=== PATIENT | male | born 1945 | race Caucasian/White ===

== ENCOUNTER 2018-09-10 14:52 | Outpatient (CLI) | payer MEDICARE ==
--- NOTE | 2018-09-10 15:16 | RAD ---
EXAM: 2 views of the right tibia/fibula HISTORY: Leg pain after hurting while bowling COMPARISON: None FINDINGS: There is no evidence of acute fracture or dislocation. Mild diffuse soft tissue swelling is seen. No degenerative changes are seen in the knee or ankle. IMPRESSION: No evidence of acute osseous abnormality.
== END 2018-09-10 14:53 | disposition home or self-care (01) ==
LOC: BICRAD 14:52
PROVIDERS: ATTEND Family Medicine
DX: M79.604 Pain in right leg (principal); G89.29 Other chronic pain
CPT/HCPCS: 36415; 83036

== ENCOUNTER 2020-02-20 08:33 | Outpatient (CLI) | payer MEDICARE ==
--- NOTE | 2020-02-20 08:48 | RAD ---
EXAM: Two views chest PROVIDED CLINICAL HISTORY: Cough and chest pressure for 2 months. COMPARISON: None FINDINGS: Cardiac silhouette and pulmonary vasculature are within normal limits. Mild linear densities are see n in the right upper lung zone which may be related to areas of mild scarring or atelectasis. No consolidation or pleural fluid is identified. There is calcification of the anterior longitudinal lig ament. Mild degenerative changes are seen in the spine. IMPRESSION: No acute cardiopulmonary process.
== END 2020-02-20 08:34 | disposition home or self-care (01) ==
LOC: BICRAD 08:33
PROVIDERS: ATTEND Family Medicine
DX: R05 Cough (principal)
CPT/HCPCS: 71046

== ENCOUNTER 2023-10-09 10:20 | Inpatient (IN) | payer MEDICARE, OTHER ==
[2023-10-09] MEDS ORDERED: Morphine 4 MG/ML VIAL ONE (10:52)
[2023-10-09] MEDS ORDERED: Cefepime 2 GM VIAL ONE (10:52)
[2023-10-09] MEDS ORDERED: Ondansetron PF 4 MG/2 ML Vial ONE (10:52)
[2023-10-09] MEDS ORDERED: Sodium Chloride 0.9% 0 ML ONE (10:53)
[2023-10-09 11:10] LABS: Hematocrit 35.4 % (42.0-52.0); Hemoglobin 11.7 g/dL (14.0-18.0); Mean Corpuscular HGB CONC 33.1 g/dL (32.0-36.0); Mean Corpuscular Hemoglobin 28.9 pg (27.0-31.0); Mean Corpuscular Volume 87.4 fL (78.0-98.0); Mean Platelet Volume 10.4 fL (7.4-10.4); Platelet Count 351 10x3/uL (130-400); RBC Distribution Width 13.3 % (11.5-14.5); Red Blood Cell (RBC) Count 4.05 mill/uL (4.70-6.10)
[2023-10-09 11:31] LABS: Anisocytosis MODERATE=16-30 cells HPF (0-5); Band 3 % (5-11); Lymphocytes 8 % (21-51); Macrocytosis SLIGHT = 6-15 cells HPF (0-5); Metamyelocyte 4 % (0-0); Monocytes 4 % (0-10); Myelocyte 1 % (0-0); Neutrophil 80 % (42-75); Platelet Adequacy Comment Platelets Normal; Polychromasia MODERATE = 3-4 cells HPF (0-2); Tear Drops SLIGHT = 2-5 cells HPF (0-1); Vacuoles SLIGHT
[2023-10-09 11:43] LABS: ALT (SGPT) 20 U/L (8-55); AST (SGOT) 30 U/L (5-34); Albumin 2.3 g/dL (3.4-4.8); Alkaline Phosphatase 48 U/L (40-110); Anion Gap 15 mmol/L (10-20); BUN (Urea Nitrogen) 15 mg/dL (8.4-25.7); Bilirubin, Total 0.3 mg/dL (0.2-1.2); Calc. Creatinine Clearance 0 mL/min (70-130); Calcium 9.2 mg/dL (7.8-10.44); Carbon Dioxide 18 mmol/L (23-31); Chloride 107 mmol/L (98-107); Estimated GFR 76; Globulin 4.7 g/dL (2.4-3.5); Glucose 158 mg/dL (83-110); Lipase 67 U/L (8-78); Potassium 4.2 mmol/L (3.5-5.1); Sodium 136 mmol/L (136-145)
[2023-10-09 11:57] LABS: INR-International Normal Ratio 1.2; Prothrombin Time 15.5 sec (12.0-14.7)
[2023-10-09 11:58] LABS: PTT 35.8 sec (22.9-36.1)
[2023-10-09 12:05] LABS: Troponin I Less than 0.010 ng/mL (< 0.028)
[2023-10-09] MEDS ORDERED: Mag-Al 1200 mg/1200 mg/30 ML UDCUP PO PRN (13:11)
[2023-10-09] MEDS ORDERED: Dextrose 50% Abboject 50 ML SYRINGE SLOW IVP PRN ×2 (13:11→14:50)
[2023-10-09] MEDS ORDERED: Morphine 2 MG/ML VIAL SLOW IVP PRN (13:11)
[2023-10-09] MEDS ORDERED: Ondansetron PF 4 MG/2 ML Vial IVP PRN (13:11)
[2023-10-09] MEDS ORDERED: Ipratropium/Albuterol 3 ML NEB NEB PRN (13:11)
[2023-10-09] MEDS ORDERED: hydrALAZINE 20 MG/ML VIAL SLOW IVP PRN (13:11)
[2023-10-09] MEDS ORDERED: Glucagon 1 MG/ML KIT IM PRN ×2 (13:11→14:50)
[2023-10-09] MEDS ORDERED: Dextrose 5% in Water 1,000 ML IV PRN ×2 (13:11→14:50)
[2023-10-09 13:14] LABS: Bacteria/HPF None Seen HPF (None Seen); Bilirubin Negative (Negative); Blood, Urine Negative (Negative); CAUTI Indications for Culture Pelvic or flank pain; Clarity Clear (Clear); Glucose, Urine (Dipstick) Normal (Negative); Ketone, Urine Negative (Negative); Leukocyte Negative Leu/uL (Negative); Nitrite Negative (Negative); Protein, Urine (Dipstick) Negative (Neg-Trace); RBC/HPF 0-3 HPF (0-3); Specific Gravity, Urine 1.025 (1.002-1.036); Squamous Epithelial None Seen HPF (0-3); Urobilinogen Normal mg/dL (Less than 2); WBC/HPF 0-3 HPF (0-3)
[2023-10-09 13:16] LABS: Urine Culture Reflex No No
[2023-10-09] MEDS ORDERED: dilTIAZem 25 MG/5 ML VIAL ONE (13:19)
[2023-10-09] MEDS ORDERED: Adenosine 6 mg (2 mL) VIAL ONE (13:47)
[2023-10-09 13:56] LABS: Influenza A by NAA Not Detected (NotDetected); Influenza B by NAA Not Detected (NotDetected); SARS-CoV-2 NAA Rapid Test Not Detected (NotDetected)
[2023-10-09] MEDS ORDERED: Metoclopramide HCl 10 MG (2 mL) VIAL ONE (14:37)
[2023-10-09] MEDS ORDERED: HumaLOG 300 UNITS/3 ML VIAL SC PRN (14:50)
[2023-10-09] MEDS ORDERED: dilTIAZem 125 MG/25 ML SDV ONE (14:53)
[2023-10-09 16:22] VITALS: BMI 37.0
[2023-10-09] MEDS: Vancomycin (BATCH) 2.5 GM in Premix 1 BAG IVPB SCH (16:51)
[2023-10-09] MEDS: Piperacillin/Tazobactam 3.375 GM in Sodium Chloride 0.9% 100 ML IVPB SCH ×2 (16:58→21:28)
[2023-10-09] MEDS ORDERED: Piperacillin/Tazobactam 3.375 GM in Sodium Chloride 0.9% 100 ML IVPB SCH ×2 (17:15→21:00)
[2023-10-09] MEDS: Amiodarone 150 MG, Admixture Fee 1 EACH in Dextrose 5% in Water 100 ML IVPB SCH (18:12)
[2023-10-09] MEDS: Amiodarone 450 MG in Dextrose 5% in Water 250 ML IVPB SCH (18:16)
[2023-10-09] MEDS: Famotidine/PF 20 mg/2ml Vial SLOW IVP SCH (21:28)
[2023-10-09] MEDS: Famotidine 20 MG TAB PO SCH (22:48)
[2023-10-10] MEDS: Metoprolol Tartrate 5 MG (5 mL) VIAL IVP PRN ×2 (01:41→06:11)
[2023-10-10] MEDS: HYDROcodone/Acetaminophen 10/325 mg Tablet PO PRN (03:01)
[2023-10-10 06:55] LABS: #Basophils 0.06 10x3/uL (0.0-0.2); %Basophils 0.3 % (0.0-1.0); %Eosinophils 0.8 % (0.0-10.0); %Lymphocytes 8.2 % (21.0-51.0); %Monocytes 5.3 % (0.0-10.0); %Neutrophils 80.8 % (42.0-75.0); Hematocrit 34.4 % (42.0-52.0); Hemoglobin 11.1 g/dL (14.0-18.0); Mean Corpuscular HGB CONC 32.3 g/dL (32.0-36.0); Mean Corpuscular Hemoglobin 29.2 pg (27.0-31.0); Mean Corpuscular Volume 90.5 fL (78.0-98.0); Mean Platelet Volume 10.3 fL (7.4-10.4); Platelet Count 334 10x3/uL (130-400); RBC Distribution Width 13.4 % (11.5-14.5)
[2023-10-10 07:23] LABS: ALT (SGPT) 17 U/L (8-55); AST (SGOT) 24 U/L (5-34); Albumin 2.1 g/dL (3.4-4.8); Alkaline Phosphatase 47 U/L (40-110); Anion Gap 15 mmol/L (10-20); BUN (Urea Nitrogen) 10 mg/dL (8.4-25.7); Bilirubin, Total 0.3 mg/dL (0.2-1.2); Calc. Creatinine Clearance 105 mL/min (70-130); Calcium 8.4 mg/dL (7.8-10.44); Carbon Dioxide 21 mmol/L (23-31); Chloride 105 mmol/L (98-107); Estimated GFR 90; Globulin 4.4 g/dL (2.4-3.5); Glucose 165 mg/dL (83-110); Potassium 4.7 mmol/L (3.5-5.1); Protein, Total 6.5 g/dL (5.8-8.1); Sodium 136 mmol/L (136-145)
[2023-10-10] MEDS: Digoxin 0.5 MG/2 ML AMP SLOW IVP SCH ×2 (08:19→09:51)
[2023-10-10] MEDS ORDERED: Lidocaine 1% w/Epinephrine 1:100K 20 ML VIAL ONE (12:11)
[2023-10-10] MEDS ORDERED: fentaNYL 50 mcg/mL 1 mL Vial ONE (12:11)
[2023-10-10] MEDS ORDERED: Sodium Bicarbonate 2.5 MEQ/5 ML SDV ONE (12:11)
[2023-10-10 16:27] LABS: BF Color Yellow; Body Fluid Source Abscess Fluid; Clarity Cloudy/Turbid (Clear); Tube # EDTA
[2023-10-10] MEDS: traZODone HCl 50 MG TAB PO SCH (21:02)
[2023-10-11 04:32] LABS: ALT (SGPT) 19 U/L (8-55); AST (SGOT) 27 U/L (5-34); Albumin 2.1 g/dL (3.4-4.8); Alkaline Phosphatase 47 U/L (40-110); Anion Gap 15 mmol/L (10-20); BUN (Urea Nitrogen) 10 mg/dL (8.4-25.7); Bilirubin, Total 0.4 mg/dL (0.2-1.2); Calc. Creatinine Clearance 96 mL/min (70-130); Calcium 8.7 mg/dL (7.8-10.44); Carbon Dioxide 21 mmol/L (23-31); Chloride 105 mmol/L (98-107); Estimated GFR 86; Globulin 4.3 g/dL (2.4-3.5); Glucose 170 mg/dL (83-110); Magnesium 1.6 mg/dL (1.6-2.6); Potassium 4.2 mmol/L (3.5-5.1); Protein, Total 6.4 g/dL (5.8-8.1); Sodium 137 mmol/L (136-145)
[2023-10-11 04:35] LABS: Hematocrit 35.9 % (42.0-52.0); Hemoglobin 11.3 g/dL (14.0-18.0); Mean Corpuscular HGB CONC 31.5 g/dL (32.0-36.0); Mean Corpuscular Hemoglobin 28.5 pg (27.0-31.0); Mean Corpuscular Volume 90.4 fL (78.0-98.0); Mean Platelet Volume 10.3 fL (7.4-10.4); Platelet Count 312 10x3/uL (130-400); Red Blood Cell (RBC) Count 3.97 mill/uL (4.70-6.10)
[2023-10-11 05:09] LABS: Band 3 % (5-11); Eosinophils 1 % (0-10); Lymphocytes 6 % (21-51); Macrocytosis SLIGHT = 6-15 cells HPF (0-5); Metamyelocyte 3 % (0-0); Monocytes 2 % (0-10); Myelocyte 4 % (0-0); Neutrophil 80 % (42-75); Platelet Adequacy Comment Platelets Normal; Polychromasia SLIGHT = 2-3 cells HPF (0-2)
[2023-10-11] MEDS: Insulin Lispro 100 UNIT/ML 10 ML VIAL SC PRN (06:29)
[2023-10-11] MEDS ORDERED: Lidocaine 1% PF 5 ML VIAL ONE (08:24)
[2023-10-11] MEDS ORDERED: PHENYLEPHRINE-NS 100 MCG/ML 10 ML SYRINGE ONE (08:24)
[2023-10-11] MEDS ORDERED: PROPOFOL 20 ML ONE ×2 (08:24→08:38)
[2023-10-11] MEDS ORDERED: Glycopyrrolate 0.2 MG/ML 5 ML SYRINGE ONE (08:24)
[2023-10-11] MEDS ORDERED: Etomidate 40 MG (20 mL) VIAL ONE (08:37)
[2023-10-11] MEDS ORDERED: Non-Formulary Item 1 EACH (Sertraline Hcl [Sertraline Hcl] 50 MG Tablet) PO SCH (09:00)
[2023-10-11] MEDS ORDERED: Ondansetron PF 4 MG/2 ML Vial ONE (10:10)
[2023-10-11] MEDS: Sertraline 25 MG TAB PO SCH (11:29)
[2023-10-11] MEDS: Fenofibrate Nanocrystallized 145 MG TAB PO SCH (11:30)
[2023-10-11] MEDS: Enoxaparin 100 MG (1 mL) SYRINGE SC SCH (11:30)
[2023-10-11] MEDS: Digoxin 0.5 MG/2 ML AMP SLOW IVP SCH (11:31)
[2023-10-11] MEDS: Atorvastatin Calcium 10 MG TAB PO SCH (20:24)
[2023-10-12 04:34] LABS: #Basophils 0.06 10x3/uL (0.0-0.2); %Basophils 0.4 % (0.0-1.0); %Eosinophils 1.4 % (0.0-10.0); %Lymphocytes 12.2 % (21.0-51.0); %Monocytes 7.3 % (0.0-10.0); %Neutrophils 74.6 % (42.0-75.0); Hematocrit 30.3 % (42.0-52.0); Hemoglobin 9.6 g/dL (14.0-18.0); Mean Corpuscular HGB CONC 31.7 g/dL (32.0-36.0); Mean Corpuscular Hemoglobin 28.7 pg (27.0-31.0); Mean Corpuscular Volume 90.4 fL (78.0-98.0); Mean Platelet Volume 10.1 fL (7.4-10.4); Platelet Count 329 10x3/uL (130-400); Red Blood Cell (RBC) Count 3.35 mill/uL (4.70-6.10)
[2023-10-12 04:50] LABS: Anion Gap 12 mmol/L (10-20); BUN (Urea Nitrogen) 14 mg/dL (8.4-25.7); Calc. Creatinine Clearance 85 mL/min (70-130); Calcium 8.5 mg/dL (7.8-10.44); Carbon Dioxide 25 mmol/L (23-31); Chloride 103 mmol/L (98-107); Estimated GFR 74; Glucose 127 mg/dL (83-110); Magnesium 1.7 mg/dL (1.6-2.6); Potassium 4.1 mmol/L (3.5-5.1); Sodium 136 mmol/L (136-145)
[2023-10-12] MEDS: Dronedarone HCl 400 MG TAB PO SCH (09:27)
[2023-10-12] MEDS: Acetaminophen 325 MG TAB PO PRN (09:28)
[2023-10-12] MEDS: traMADol HCl 50 MG TAB PO PRN (09:29)
[2023-10-12] MEDS: Calcium Carbonate 500 MG ChewTAB PO PRN (18:13)
[2023-10-12] MEDS: guaiFENesin ER 600 MG TAB PO PRN (20:25)
[2023-10-13 11:13] LABS: #Basophils 0.05 10x3/uL (0.0-0.2); %Basophils 0.4 % (0.0-1.0); %Eosinophils 0.8 % (0.0-10.0); %Lymphocytes 13.8 % (21.0-51.0); Hematocrit 30.2 % (42.0-52.0); Hemoglobin 9.6 g/dL (14.0-18.0); Mean Corpuscular HGB CONC 31.8 g/dL (32.0-36.0); Mean Corpuscular Hemoglobin 29.1 pg (27.0-31.0); Mean Corpuscular Volume 91.5 fL (78.0-98.0); Mean Platelet Volume 9.8 fL (7.4-10.4); Platelet Count 277 10x3/uL (130-400); RBC Distribution Width 12.9 % (11.5-14.5)
[2023-10-13] MEDS: Apixaban 5 MG TAB PO SCH (20:04)
[2023-10-14] MEDS: Morphine 4 MG/ML VIAL SLOW IVP PRN (14:34)
[2023-10-15 06:11] LABS: #Basophils 0.07 10x3/uL (0.0-0.2); %Basophils 0.7 % (0.0-1.0); %Eosinophils 1.7 % (0.0-10.0); %Lymphocytes 16.2 % (21.0-51.0); %Monocytes 8.5 % (0.0-10.0); %Neutrophils 69.7 % (42.0-75.0); Hematocrit 30.5 % (42.0-52.0); Hemoglobin 9.7 g/dL (14.0-18.0); Mean Corpuscular HGB CONC 31.8 g/dL (32.0-36.0); Mean Corpuscular Hemoglobin 28.7 pg (27.0-31.0); Mean Corpuscular Volume 90.2 fL (78.0-98.0); Platelet Count 262 10x3/uL (130-400); RBC Distribution Width 12.7 % (11.5-14.5); Red Blood Cell (RBC) Count 3.38 mill/uL (4.70-6.10)
[2023-10-15 06:55] LABS: Anion Gap 13 mmol/L (10-20); BUN (Urea Nitrogen) 13 mg/dL (8.4-25.7); Calc. Creatinine Clearance 86 mL/min (70-130); Carbon Dioxide 22 mmol/L (23-31); Chloride 105 mmol/L (98-107); Estimated GFR 78; Glucose 152 mg/dL (83-110); Potassium 4.3 mmol/L (3.5-5.1); Sodium 136 mmol/L (136-145)
[2023-10-15 08:53] VITALS: BMI 35.9
[2023-10-15 13:13] VITALS: BP 124/64; TEMP 98.1
== END 2023-10-15 17:21 | disposition home or self-care (01) | DRG 862 ==
LOC: ERS 10:20 → IMCU/EMU 13:18 → SURG B 10-14 12:12
PROVIDERS: ADMIT Surgery; ATTEND Surgery
PROC: B24BZZ4 Ultrasonography of Heart with Aorta, Transesophageal (ICD-10-PCS; principal; 2023-10-11)
PROC: 5A2204Z Restoration of Cardiac Rhythm, Single (ICD-10-PCS; 2023-10-11)
DX: T81.43XA Infection following a procedure, organ and space surgical site, initial encounter (principal); A41.9 Sepsis, unspecified organism; K65.1 Peritoneal abscess; I48.92 Unspecified atrial flutter; I42.9 Cardiomyopathy, unspecified; I50.22 Chronic systolic (congestive) heart failure; I11.0 Hypertensive heart disease with heart failure; E78.5 Hyperlipidemia, unspecified; E11.9 Type 2 diabetes mellitus without complications; Z79.899 Other long term (current) drug therapy
CPT/HCPCS: 36415; 36416; 49406; 71045; 71275; 74177; 80048; 80053; 81001; 83605; 83690; 83735; 83880; 84484; 85025; 85060; 85610; 85730; 87040; 87070; 87076; 87077; 87149; 87186; 87205; 89051; 92960; 93005; 93010; 93306; 93312; 94760; 96361; 96365; 96375; 96376; 97139; J0153; J0282; J0692; J1160; J1650; J1815; J2270; J2272; J2405; J2543; J2704; J2765; J3010; J3370; J3490; J7070; S0028